=== PATIENT | male | born 1990 | race African-American/Black ===

== ENCOUNTER 2020-10-24 20:10 | Emergency (ER) | payer OTHER ==
[2020-10-24] MEDS ORDERED: Ketorolac Tromethamine 30 MG/ML VIAL ONE (20:23)
[2020-10-25] MEDS ORDERED: Ketorolac Tromethamine 30 MG/ML VIAL ONE (03:03)
[2020-10-25] MEDS ORDERED: Lisinopril 10 MG TAB ONE (11:36)
[2020-10-25] MEDS ORDERED: Amlodipine 5 MG TAB ONE (11:36)
[2020-10-25] MEDS ORDERED: methylPREDNISolone Sod Succ/PF 125 MG/2 ML VIAL ONE (16:55)
[2020-10-25] MEDS ORDERED: HYDROcodone/Acetaminophen 10/325 mg Tablet ONE (16:55)
== END 2020-10-25 17:41 ==
LOC: MADERS 20:10
DX: M54.17 Radiculopathy, lumbosacral region (principal); R20.2 Paresthesia of skin; I10 Essential (primary) hypertension; Z79.899 Other long term (current) drug therapy; W01.198A Fall on same level from slipping, tripping and stumbling with subsequent striking against other object, initial encounter
CPT/HCPCS: 72131; 72170; 96372; 96374; J1885; J2930